=== PATIENT | male | born 1965 | race Caucasian/White ===

== ENCOUNTER 2020-06-12 21:09 | Emergency (ER) | payer BC ==
[2020-06-12] MEDS ORDERED: TORAdol 30 mg Injection IM ONE (21:25)
[2020-06-12] MEDS ORDERED: TORAdol 30 mg Injection ONE (21:29)
--- NOTE | 2020-06-12 21:45 | ERPHSYRPT ---
- History of Present Illness Time Seen by Provider: 06/12/20 21:13 Source: patient Exam Limitations: no limitations Patient Subjective Stated Complaint: "I hurt my elbow." Triage Nursing Assessment: patient reported initially injuring his right elbow with sheet metal roughly 1 month ago. Reported recent injury while [id number] softball. Pain is constant with intermittent worsening during active manipulation. Described as throbbing and radiating down the forearm. slight weakness noted. No noted swelling, contusions, abrasions, erythema. peripheral pulses +2 bilateral. Physician History: 54 years old male with history of coronary artery disease status post stenting, hypertension, hyperlipidemia presented in the ER with chief complaint of right elbow pain. Patient reports he was crushing metals almost a month ago when a piece of metal hit right elbow and it was initially painful but resolved until today when he was bowling and felt pain with release of ball earlier in the right elbow and right upper forearm, sharp shooting mild to moderate intensity, intermittent with movements and better with being still. Denies any new fall or trauma. He also report felt a popping sound today in the elbow. Denies any swelling around the elbow. No weakness in the arm. No tingling or numbness in the arm. Allergies/Adverse Reactions: No Known Drug Allergies Allergy (Verified 06/12/20 21:19) Home Medications: Aspirin 81 mg PO DAILY 09/07/15 [History] Benazepril HCl 10 mg [Lotensin 10 MG] 10 mg PO DAILY 09/07/15 [History] Bupropion HCl 150 mg Sr [Wellbutrin SR 150 MG] 150 mg PO DAILY 09/07/15 [History] Folic Acid 1 mg PO DAILY 09/07/15 [History] Isosorbide Mononitrate [Isosorbide Mononitrate ER] 30 mg PO DAILY 09/07/15 [History] Metoprolol Tartrate 25 mg [Lopressor 25MG Tab] 25 mg PO BID 09/07/15 [History] Atorvastatin Calcium [Lipitor 20MG Tablet] 20 mg PO HS 12/19/15 [History] Hx Tetanus, Diphtheria Vaccination/Date Given: Yes Hx Influenza Vaccination/Date Given: Yes Hx Pneumococcal Vaccination/Date Given: No Travel Risk - International Travel Have you traveled outside of the country in past 3 weeks: No - Coronavirus Screening Are you exhibiting any of the following symptoms?: No Close contact with a COVID-19 positive Pt in past 14-21 Days: No - Vaccine Status Have you recieved a Covid-19 vaccination: Yes Network Support Manager: [employer] - Vaccination Dates Date of 2cond Vaccination (if applicable): 06/07/20 - Review of Systems Constitutional: No Symptoms Ears, Nose, & Throat: No Symptoms Respiratory: No Symptoms Cardiac: No Symptoms Abdominal/Gastrointestinal: No Symptoms Genitourinary Symptoms: No Symptoms Musculoskeletal: Joint Pain Skin: No Symptoms Neurological: No Symptoms Psychological: No Symptoms Endocrine: No Symptoms Hematologic/Lymphatic: No Symptoms Immunological/Allergic: No Symptoms - Past Medical History Pertinent Past Medical History: Yes Neurological History: No Pertinent History ENT History: No Pertinent History Cardiac History: Hypertension Respiratory History: No Pertinent History Endocrine Medical History: No Pertinent History Musculoskeletal History: No Pertinent History GI Medical History: No Pertinent History History: No Pertinent History Psycho-Social History: No Pertinent History Male Reproductive Disorders: No Pertinent History - Past Surgical History Past Surgical History: Yes Neuro Surgical History: No Pertinent History Cardiac: Cardiac Stent Respiratory: No Pertinent History Gastrointestinal: No Pertinent History Genitourinary: No Pertinent History Musculoskeletal: Other Male Surgical History: No Pertinent History Other Surgical History: PIECE OF PLEXY GLASS, REMOVED FROM LT LEG - Social History Smoking Status: Current every day smoker How long have you smoked: yrs Exposure to second hand smoke: Yes Alcohol Use: Socially Drug Use: none Patient Lives Alone: No Significant Family History: no pertinent family hx - Nursing Vital Signs Nursing Vital Signs: Initial Vital Signs Pulse Rate 60 06/12/20 21:09 Respiratory Rate 16 06/12/20 21:09 Blood Pressure 167/82 06/12/20 21:09 O2 Sat by Pulse Oximetry 96 06/12/20 21:09 Pain Scale Pain Intensity 5 - Physical Exam General Appearance: no apparent distress Neck Exam: normal inspection, supple, full range of motion Cardiovascular/Respiratory Exam: normal breath sounds, regular rate/rhythm Back Exam: normal inspection, normal range of motion Shoulder Exam: normal inspection, non-tender, no evidence of injury, normal ROM Elbow/Forearm Exam: normal inspection, non-tender, no evidence of injury, normal ROM Wrist Exam: normal inspection, non-tender, no evidence of injury Hand Exam: normal inspection, non-tender Neuro/Tendon Exam: normal sensation, normal motor functions, normal tendon functions Mental Status Exam: alert, oriented x 3, cooperative Skin Exam: normal color SpO2 Interpretation: normal SpO2: 96 O2 Delivery: Room Air Ordered Tests: Active Orders 24 hr Category Date Time Status ELBOW (MINIMUM 3 VIEWS) Stat Exams 06/12/20 Ordered Medication Summary Discontinued Medications Generic Name Dose Route Start Last Admin Trade Name Nathaniel PRN Reason Stop Dose Admin Ketorolac Tromethamine 30 mg 06/12/20 21:25 06/12/20 21:31 Toradol 30 Mg Injection IM 06/12/20 21:26 30 mg STAT ONE Administration Ketorolac Tromethamine Confirm 06/12/20 21:29 Toradol 30 Mg Injection Administered 06/12/20 21:30 Dose 30 mg .ROUTE .STInside-MED ONE - Progress Progress: improved Progress Note: 06/12/20 Is given Toradol for symptomatic relief. I did not appreciate any bony tenderness or swelling. Intact range of motion. Patient states pain is intermittent with release of ball. With him having some popping sound and pain with release of ball I believe it is more of a ligamentous etiology. X-rays are negative for any fracture dislocation or foreign body reviewed by me, official report is pending. I have recommended taking ibuprofen as needed for pain and outpatient follow-up with Ortho clinic and may need further evaluation like MRI. At this point I do not think he needs any further work-up in the ER and is stable for discharge. Counseled pt/family regarding: diagnosis, need for follow-up, rad results - Departure Departure Disposition: Home Clinical Impression: Strain of right elbow and forearm Qualifiers: Encounter type: initial encounter Qualified Code(s): S56.911A - Strain of unsp ecified muscles, fascia and tendons at forearm level, right arm, initial encounter Condition: Stable Critical Care Time: No Referrals: VICKI CUMMINS [Primary Care Provider] - (2 days for reevaluation) ORTHO - ROMAN SNOWDEN NP [NON-STAFF PHY W/O PRIVILEGES] - (2 days for reevaluation) Instructions: Overuse Injuries (DC) Additional Instructions: Use sling. Apply ice. Avoid exertional activities. Follow-up with Ortho clinic for reevaluation. Take Tylenol/ibuprofen as needed. Do not take Aleve with ibuprofen. Return to ER for worsening. Prescriptions: Ibuprofen 600 mg PO Q6HPRN PRN 10 Days #20 tablet PRN Reason: Pain
[2020-06-12 22:16] VITALS: BP 139/81; PULSE 65
[2020-06-12 22:54] VITALS: O2SAT 96
--- NOTE | 2020-06-13 08:10 | XRAY ---
Indication: Pain following bowling injury. Comparison: None 3 view right elbow demonstrates tiny medial/lateral epicondyle spurring. No other bony, articular, or soft tissue abnormalities.
== END 2020-06-12 22:20 | disposition home or self-care (01) ==
LOC: ED 21:09
DX: S56.911A Strain of unspecified muscles, fascia and tendons at forearm level, right arm, initial encounter (principal); M25.521 Pain in right elbow; X58.XXXA Exposure to other specified factors, initial encounter; Y93.9 Activity, unspecified; Y92.9 Unspecified place or not applicable; I25.10 Atherosclerotic heart disease of native coronary artery without angina pectoris; I10 Essential (primary) hypertension; Z79.899 Other long term (current) drug therapy
CPT/HCPCS: 73080; 96372; 99284; J1885